=== PATIENT | female | born 1975 | race Caucasian/White ===

== ENCOUNTER 2021-02-12 15:17 | Emergency (ER) | payer OTHER ==
[2021-02-12 16:22] LABS: HEMOGLOBIN 15.1 gm/dl (12.3-15.3); RED BLOOD COUNT 4.75 M/UL (4.00-5.10); WHITE BLOOD COUNT 7.4 K/UL (4.5-11.0)
[2021-02-12 16:47] LABS: BUN/CREATININE RATIO 24 (0-10)
[2021-02-12] MEDS ORDERED: ASPIRIN CHEWABL81 MG PO (21:54)
== END 2021-02-12 22:13 | disposition home or self-care (01) ==
LOC: ER1 15:17
PROVIDERS: Physician Assistant
DX: R07.89 Other chest pain (principal); F17.200 Nicotine dependence, unspecified, uncomplicated; I10 Essential (primary) hypertension; Z20.822 Contact with and (suspected) exposure to COVID-19
CPT/HCPCS: 71045; 80053; 82550; 82553; 83690; 83874; 84484; 85025; 93005; 99285; U0002